=== PATIENT | female | born 1975 | race Caucasian/White ===

== ENCOUNTER → 2018-02-11 | Outpatient (CLI) | payer OTHER | LOC: M.RAD 15:48 | DX: Z12.31 Encounter for screening mammogram for malignant neoplasm of breast (principal) ==

== ENCOUNTER → 2019-06-30 | Outpatient (CLI) | payer OTHER | LOC: M.RAD 16:15 | DX: Z12.31 Encounter for screening mammogram for malignant neoplasm of breast (principal) ==

== ENCOUNTER → 2019-11-22 | Outpatient (CLI) | payer OTHER | LOC: M.ULTRA 08:56 | DX: R10.84 Generalized abdominal pain (principal) ==

== ENCOUNTER → 2020-07-10 | Outpatient (CLI) | payer OTHER | LOC: M.RAD 16:23 | PROVIDERS: ATTEND Obstetrics & Gynecology | DX: Z12.31 Encounter for screening mammogram for malignant neoplasm of breast (principal) ==

== ENCOUNTER → 2021-07-14 | Outpatient (CLI) | payer OTHER | LOC: M.RAD 15:59 | PROVIDERS: ATTEND Obstetrics & Gynecology | DX: Z12.31 Encounter for screening mammogram for malignant neoplasm of breast (principal) ==